=== PATIENT | female | born 1960 | race Caucasian/White ===

== ENCOUNTER → 2018-03-08 12:13 | Outpatient (CLI) | payer OTHER, SELFPAY ==
--- NOTE | 2018-03-08 | DI.MG.S_ITS ---
BILATERAL DIGITAL SCREENING MAMMOGRAM 3D/2D WITH CAD: 03/08/2018 CLINICAL: Routine screening. Family history of breast cancer. Comparison is made to exams dated: 03/07/2017 mammogram, 02/12/2016 mammogram, and 02/05/2015 mammogram - [facility]. The tissue of both breasts is extremely dense, which lowers the sensitivity of mammography. Current study was also evaluated with a Computer Aided Detection (CAD) system. There is an oval mass with an obscured margin in the right breast lower outer aspect middle depth. There also is an oval mass with an obscured margin in the right breast at 8 o'clock posterior depth. There are grouped heterogeneous calcifications in the left breast posterior depth lateral region seen on the craniocaudal view only. This areincreased in number. No other significant masses or calcifications are seen in either breast. IMPRESSION: INCOMPLETE: NEEDS ADDITIONAL IMAGING EVALUATION 1) The oval mass in the right breast lower outer aspect middle depth is indeterminate. Additional views with possible ultrasound are recommended. 2) The oval mass in the right breast at 8 o'clock posterior depth is indeterminate. Additional views with possible ultrasound are recommended. 3) The grouped heterogeneous calcifications in the left breast posterior depth lateral region seen on the craniocaudal view only are indeterminate. Additional views with possible ultrasound are recommended. This exam was interpreted at Station ID: [id number]. NOTE: For mammograms, a report in lay terms will be sent to the patient. Approximately 15% of breast malignancies will not be visualized mammographically. In the management of a palpable breast mass, a negative mammogram must not discourage biopsy of a clinically suspicious lesion. Electronically Signed By: Joshua Lyman M.D. ecl/:03/08/2018 21:32:24 copy to: UMANG DHALIWAL letter sent: Additional Imaging Needed ACR BI-RADS Category 0: Incomplete 3340F
== END ==
PROVIDERS: Family Provider Physician Assistant; PCP Physician Assistant; Visit Provider Physician Assistant
DX: Z12.31 Encounter for screening mammogram for malignant neoplasm of breast (principal); Z80.3 Family history of malignant neoplasm of breast; M85.851 Other specified disorders of bone density and structure, right thigh; Z78.0 Asymptomatic menopausal state; E07.9 Disorder of thyroid, unspecified; Z82.62 Family history of osteoporosis
CPT/HCPCS: 77063; 77067; 77080

== ENCOUNTER → 2018-03-21 16:43 | Outpatient (CLI) | payer OTHER, SELFPAY ==
[2018-03-21 17:27] LABS: Alanine Aminotransferase 40 IU/L (9-52); Albumin 4.6 g/dL (3.5-5.0); Albumin Globulin Ratio 1.5 (1.0-2.8); Alkaline Phosphatase 172 U/L (38-126); Aspartate Aminotransferase 36 IU/L (14-36); Bilirubin Total 0.5 mg/dL (0.2-1.3); Bilirubin Unconjugated 0.3 mg/dL (0.0-1.1); Globulin 3.1 g/dL (1.7-4.1); HEMOLYSIS < 15 (0-50); Total Protein 7.7 g/dL (6.3-8.2)
[2018-03-21 17:57] LABS: TSH w/ Reflex to FT4 1.45 uIU/mL (0.47-4.68)
== END ==
PROVIDERS: Family Provider Physician Assistant; PCP Physician Assistant; Visit Provider Internal Medicine Gastroenterology
DX: K74.3 Primary biliary cirrhosis (principal); R94.5 Abnormal results of liver function studies
CPT/HCPCS: 36415; 80076; 84443

== ENCOUNTER → 2018-03-22 12:52 | Outpatient (CLI) | payer OTHER, SELFPAY ==
--- NOTE | 2018-03-22 12:54 | DI.US.S_ITS ---
ULTRASOUND OF LEFT BREAST: 03/22/2018 CLINICAL: Patient returns today to evaluate a density/calcs in the left breast. Comparison is made to exams dated: 03/22/2018 mammogram, 03/22/2018 mammogram, 03/08/2018 mammogram, 03/07/2017 mammogram, and 02/12/2016 mammogram - [facility]. Real-time and Doppler ultrasound of the left breast were performed. Hogdes scale images of the real-time examination were reviewed. No significant masses or abnormalities are seen in the upper outer left breast. No masses are identified to correlate with the left breast calcifications seen on comparison diagnostic mammography from earlier on the same day. IMPRESSION: SUSPICIOUS OF MALIGNANCY - FOLLOW-UP RECOMMENDED No ultrasound correlate for the 3.8 cm extent of upper outer left breast calcifications seen on diagnostic mammography. A stereotactic biopsy of these calcifications is recommended. These results and recommendations were discussed with the patient in person at the time of the exam by Dr. Loreta Lao, attending radiologist at [facility]. This exam was interpreted at Station ID: [id number]. Electronically Signed By: Joshua Lyman M.D. ecl/:03/22/2018 17:14:22 copy to: UMANG DHALIWAL letter sent: Biopsy Required Ultrasound BI-RADS: 4b Suspicious abnormality - intermediate suspicion of malignancy
--- NOTE | 2018-03-22 12:54 | DI.US.S_ITS ---
ULTRASOUND OF RIGHT BREAST: 03/22/2018 CLINICAL: Patient returns today to evaluate a density in the right breast. Comparison is made to exams dated: 03/22/2018 mammogram, 03/08/2018 mammogram, 03/07/2017 mammogram, and 02/12/2016 mammogram - [facility]. Real-time and Doppler ultrasound of the right breast were performed. Hodges scale images of the real-time examination were reviewed. There is a benign 2.0 cm x 1.9 cm x 1 cm oval cyst in the right breast at 8 o'clock 2 cm from the nipple. This oval cyst is anechoic with posterior acoustic enhancement. This correlates with mammography findings. Color flow imaging demonstrates that there is no vascularity present. IMPRESSION: BENIGN There is no sonographic evidence of malignancy in the right breast. The 2.0 cm x 1.9 cm x 1 cm oval cyst in the right breast is consistent with a simple cyst and is benign. Return to annual screening mammogram schedule is recommended. This exam was interpreted at Station ID: [id number]. Electronically Signed By: Joshua Lyman M.D. ecl/:03/22/2018 17:17:43 copy to: UMANG DHALIWAL letter sent: Normal Exam Ultrasound BI-RADS: 2 Benign
--- NOTE | 2018-03-22 12:54 | DI.MG.S_ITS ---
UNILATERAL LEFT DIGITAL DIAGNOSTIC MAMMOGRAM 3D/2D WITH ADDITIONAL VIEWS: 03/22/2018 CLINICAL: Additional evaluation requested from prior study. Comparison is made to exams dated: 03/08/2018 mammogram, 03/07/2017 mammogram, and 02/12/2016 mammogram - [facility]. The tissue of the left breast is extremely dense, which lowers the sensitivity of mammography. There are fine pleomorphic calcifications in the upper outer left breast extending from anterior to middle depth across an anteroposterior span of at least 3.8 cm. At the posterior extent of these calcifications is a 1.0 cm focus of grouped punctate calcifications. No other significant masses, calcifications, or other findings are seen in the breast. IMPRESSION: INCOMPLETE: NEEDS ADDITIONAL IMAGING EVALUATION 3.8 cm extent of upper outer left breast calcifications, with a 1.0 cm focus of grouped punctate calcifications at the posterior extent of these calcifications. Recommend targeted ultrasound to assess for the presence of a mass lesion; if no mass is identified on ultrasound, then a stereotactic biopsy of these calcifications is recommended. This exam was interpreted at Station ID: [id number]. NOTE: For mammograms, a report in lay terms will be sent to the patient. Approximately 15% of breast malignancies will not be visualized mammographically. In the management of a palpable breast mass, a negative mammogram must not discourage biopsy of a clinically suspicious lesion. Electronically Signed By: Joshua Lyman M.D. ecl/:03/22/2018 17:10:56 copy to: UMANG DHALIWAL letter sent: Additional Imaging Needed ACR BI-RADS Category 0: Incomplete 3340F
--- NOTE | 2018-03-22 12:54 | DI.MG.S_ITS ---
UNILATERAL RIGHT DIGITAL DIAGNOSTIC MAMMOGRAM 3D/2D WITH ADDITIONAL VIEWS: 03/22/2018 CLINICAL: Additional evaluation requested from prior study. Comparison is made to exams dated: 03/08/2018 mammogram, 03/07/2017 mammogram, and 02/12/2016 mammogram - [facility]. The tissue of the right breast is extremely dense, which lowers the sensitivity of mammography. There is a 2 cm oval mass with a circumscribed margin in the right breast at 8 o'clock posterior depth. No other significant masses or calcifications are seen in the breast. IMPRESSION: INCOMPLETE: NEEDS ADDITIONAL IMAGING EVALUATION The 2 cm oval mass in the right breast is indeterminate. Additional views with possible ultrasound are recommended. This exam was interpreted at Station ID: [id number]. NOTE: For mammograms, a report in lay terms will be sent to the patient. Approximately 15% of breast malignancies will not be visualized mammographically. In the management of a palpable breast mass, a negative mammogram must not discourage biopsy of a clinically suspicious lesion. Electronically Signed By: Joshua Lyman M.D. ecl/:03/22/2018 17:07:12 copy to: UMANG DHALIWAL letter sent: Additional Imaging Needed ACR BI-RADS Category 0: Incomplete 3340F
== END ==
PROVIDERS: Family Provider Physician Assistant; PCP Physician Assistant; Visit Provider Physician Assistant
DX: R92.8 Other abnormal and inconclusive findings on diagnostic imaging of breast (principal); N60.01 Solitary cyst of right breast
CPT/HCPCS: 76642; 77065; 77066; G0279

== ENCOUNTER → 2018-04-16 15:54 | Outpatient (CLI) | payer OTHER, SELFPAY ==
[2018-04-16 16:58] LABS: Vitamin D 25 Hydroxy (D3) 16.6 ng/mL (30.0-100.0)
== END ==
PROVIDERS: Family Provider Physician Assistant; PCP Physician Assistant; Visit Provider Physician Assistant
DX: K76.9 Liver disease, unspecified (principal)
CPT/HCPCS: 36415; 82306

== ENCOUNTER → 2018-07-02 14:52 | Outpatient (CLI) | payer OTHER, SELFPAY ==
[2018-07-02 15:51] LABS: Vitamin D 25 Hydroxy (D3) 36.5 ng/mL (30.0-100.0)
== END ==
PROVIDERS: Family Provider Physician Assistant; PCP Physician Assistant; Visit Provider Physician Assistant
DX: E55.9 Vitamin D deficiency, unspecified (principal); K74.3 Primary biliary cirrhosis; M81.0 Age-related osteoporosis without current pathological fracture
CPT/HCPCS: 36415; 82306

== ENCOUNTER → 2018-10-30 13:23 | Outpatient (CLI) | payer OTHER, SELFPAY ==
[2018-10-30 15:08] LABS: Alanine Aminotransferase 42 IU/L (9-52); Albumin 4.6 g/dL (3.5-5.0); Albumin Globulin Ratio 1.4 (1.0-2.8); Alkaline Phosphatase 154 U/L (38-126); Aspartate Aminotransferase 33 IU/L (14-36); BUN Creatinine Ratio 12.5 (6-22); Bilirubin Total 0.5 mg/dL (0.2-1.3); Bilirubin Unconjugated 0.4 mg/dL (0.0-1.1); Blood Urea Nitrogen 10 mg/dL (7-17); Calcium 9.6 mg/dL (8.4-10.2); Carbon Dioxide 27 mmol/L (22-32); Chloride 98 mmol/L (98-107); Estimated Glomerular Filt Rate > 60.0 mL/min (>60); Globulin 3.4 g/dL (1.7-4.1); Glucose 63 mg/dL (70-100); HEMOLYSIS < 15 (0-50); Potassium 4.6 mmol/L (3.4-5.1); Sodium 135 mmol/L (137-145)
[2018-10-30 15:36] LABS: Thyroid Stimulating Hormone 1.38 uIU/mL (0.47-4.68)
[2018-10-30 15:38] LABS: Vitamin D 25 Hydroxy (D3) 55.3 ng/mL (30.0-100.0)
== END ==
PROVIDERS: Family Provider Physician Assistant; PCP Physician Assistant; Visit Provider Internal Medicine Gastroenterology
DX: K74.3 Primary biliary cirrhosis (principal); R94.5 Abnormal results of liver function studies; D86.9 Sarcoidosis, unspecified; E03.9 Hypothyroidism, unspecified; L81.7 Pigmented purpuric dermatosis; M81.0 Age-related osteoporosis without current pathological fracture
CPT/HCPCS: 36415; 80053; 80076; 82306; 84443

== ENCOUNTER → 2019-05-03 13:11 | Outpatient (CLI) | payer OTHER, SELFPAY ==
[2019-05-03 15:29] LABS: Alanine Aminotransferase 19 IU/L (9-52); Albumin 4.6 g/dL (3.5-5.0); Albumin Globulin Ratio 1.4 (1.0-2.8); Alkaline Phosphatase 168 U/L (38-126); Aspartate Aminotransferase 34 IU/L (14-36); Bilirubin Total 0.6 mg/dL (0.2-1.3); Bilirubin Unconjugated 0.4 mg/dL (0.0-1.1); Globulin 3.4 g/dL (1.7-4.1); HEMOLYSIS < 15 (0-50)
== END ==
PROVIDERS: Family Provider Physician Assistant; PCP Physician Assistant; Visit Provider Internal Medicine Gastroenterology
DX: K74.3 Primary biliary cirrhosis (principal)
CPT/HCPCS: 36415; 80076

== ENCOUNTER → 2019-08-17 08:05 | Outpatient (CLI) | payer OTHER, SELFPAY ==
[2019-08-17 08:44] LABS: Add Manual Diff / Slide Review NO; Basophils Absolute Auto 0 /uL (0-100); Basophils Percent Auto 0.7 % (0-2); Eosinophils Absolute Auto 100 /uL (0-450); Eosinophils Percent Auto 2.1 % (2-4); Hematocrit 38.2 % (36-46); Hemoglobin 13.4 g/dL (12.0-16.0); Lymphocytes Absolute Auto 1900 /uL (1100-4500); Lymphocytes Percent Auto 30.5 % (25-40); Mean Corpuscular Hemoglobin 32.9 PG (26-34); Mean Corpuscular Volume 93.9 fL (80-100); Monocytes Absolute Auto 700 /uL (0-900); Monocytes Percent Auto 10.8 % (3-14); Neutrophils Absolute Auto 3600 /uL (1500-7000); Neutrophils Percent Auto 55.9 % (50-75); Platelet Count 301 X10^3/uL (150-400); Red Blood Cell Count 4.07 X10^6/uL (4.0-5.2); Red Cell Distribution Width 13.3 % (11.6-14.8); White Blood Cell Count 6.4 X10^3/uL (4.5-11.0)
[2019-08-17 09:20] LABS: Alanine Aminotransferase 23 IU/L (<35); Albumin 4.2 g/dL (3.5-5.0); Albumin Globulin Ratio 1.3 (1.0-2.8); Alkaline Phosphatase 152 U/L (38-126); Aspartate Aminotransferase 30 IU/L (14-36); BUN Creatinine Ratio 17.8 (6-22); Bilirubin Total 0.5 mg/dL (0.2-1.3); Blood Urea Nitrogen 16 mg/dL (7-17); Calcium 9.2 mg/dL (8.4-10.2); Carbon Dioxide 26 mmol/L (22-32); Chloride 103 mmol/L (98-107); Cholesterol 184 mg/dL (140-199); Estimated Glomerular Filt Rate > 60.0 mL/min (>60); Globulin 3.2 g/dL (1.7-4.1); Glucose 92 mg/dL (70-100); HDL Cholesterol 58 mg/dL (40-60); HEMOLYSIS < 15 (0-50); LDL Cholesterol Calculated 115 mg/dL (<100); Potassium 3.7 mmol/L (3.4-5.1); Sodium 138 mmol/L (137-145); Total Protein 7.4 g/dL (6.3-8.2); Triglycerides 56 mg/dL (35-150)
[2019-08-17 09:35] LABS: Vitamin D 25 Hydroxy (D3) 56.8 ng/mL (30.0-100.0)
[2019-08-17 09:48] LABS: Thyroid Stimulating Hormone 1.93 uIU/mL (0.47-4.68)
== END ==
PROVIDERS: Family Provider Physician Assistant; PCP Physician Assistant; Visit Provider Physician Assistant
DX: D86.9 Sarcoidosis, unspecified (principal); E03.9 Hypothyroidism, unspecified; K74.3 Primary biliary cirrhosis; M81.0 Age-related osteoporosis without current pathological fracture; Z13.220 Encounter for screening for lipoid disorders; Z13.6 Encounter for screening for cardiovascular disorders
CPT/HCPCS: 36415; 80053; 80061; 82306; 84443; 85025

== ENCOUNTER → 2019-11-06 13:54 | Outpatient (CLI) | payer OTHER, SELFPAY ==
[2019-11-06 15:34] LABS: Alanine Aminotransferase 24 IU/L (<35); Albumin 4.4 g/dL (3.5-5.0); Albumin Globulin Ratio 1.3 (1.0-2.8); Alkaline Phosphatase 173 U/L (38-126); Aspartate Aminotransferase 30 IU/L (14-36); Bilirubin Total 0.5 mg/dL (0.2-1.3); Bilirubin Unconjugated 0.3 mg/dL (0.0-1.1); Globulin 3.3 g/dL (1.7-4.1); HEMOLYSIS < 15 (0-50); Total Protein 7.7 g/dL (6.3-8.2)
== END ==
PROVIDERS: Family Provider Physician Assistant; PCP Nurse Practitioner Family; Referring Provider Internal Medicine Gastroenterology; Visit Provider Internal Medicine Gastroenterology
DX: R94.5 Abnormal results of liver function studies (principal)
CPT/HCPCS: 36415; 80076

== ENCOUNTER → 2020-03-16 13:12 | Outpatient (CLI) | payer OTHER, SELFPAY | PROVIDERS: Family Provider Physician Assistant; PCP Nurse Practitioner Family; Referring Provider Nurse Practitioner Family; Visit Provider Nurse Practitioner Family | DX: M85.851 Other specified disorders of bone density and structure, right thigh (principal); Z78.0 Asymptomatic menopausal state; E07.9 Disorder of thyroid, unspecified; Z82.62 Family history of osteoporosis | CPT/HCPCS: 77080 ==

== ENCOUNTER → 2020-05-20 07:09 | Outpatient (CLI) | payer OTHER, SELFPAY ==
[2020-05-20 10:10] LABS: Alanine Aminotransferase 24 IU/L (<35); Albumin 4.1 g/dL (3.5-5.0); Albumin Globulin Ratio 1.4 (1.0-2.8); Alkaline Phosphatase 152 U/L (38-126); Aspartate Aminotransferase 31 IU/L (14-36); Bilirubin Total 0.6 mg/dL (0.2-1.3); Bilirubin Unconjugated 0.5 mg/dL (0.0-1.1); HEMOLYSIS < 15 (0-50); Total Protein 7.1 g/dL (6.3-8.2)
== END ==
PROVIDERS: Family Provider Physician Assistant; PCP Nurse Practitioner Family; Referring Provider Internal Medicine Gastroenterology; Visit Provider Internal Medicine Gastroenterology
DX: K74.3 Primary biliary cirrhosis (principal)
CPT/HCPCS: 36415; 80076

== ENCOUNTER → 2020-09-15 15:32 | Outpatient (CLI) | payer OTHER, SELFPAY ==
[2020-09-15] MEDS: COVID-19 VACC #1, MRNA(MOD) 100 MCG/0.5 ML VIAL IM (15:38)
== END ==
PROVIDERS: Family Provider Physician Assistant; PCP Nurse Practitioner Family; Visit Provider Internal Medicine
DX: Z23 Encounter for immunization (principal)
CPT/HCPCS: 0011A; 91301

== ENCOUNTER → 2020-10-13 15:48 | Outpatient (CLI) | payer OTHER, SELFPAY ==
[2020-10-13] MEDS: COVID-19 VACC #2, MRNA(MOD) 100 MCG/0.5 ML VIAL IM (15:50)
== END ==
PROVIDERS: Family Provider Physician Assistant; PCP Nurse Practitioner Family; Visit Provider Internal Medicine
DX: Z23 Encounter for immunization (principal)
CPT/HCPCS: 0012A; 91301

== ENCOUNTER → 2020-11-05 12:28 | Outpatient (CLI) | payer OTHER, SELFPAY ==
[2020-11-05 12:54] LABS: Hematocrit 41.3 % (36-46); Mean Corpuscular Hemoglobin 32.2 PG (26-34); Mean Corpuscular Volume 94.7 fL (80-100); Platelet Count 320 X10^3/uL (150-400); Red Blood Cell Count 4.36 X10^6/uL (4.0-5.2); Red Cell Distribution Width 13.1 % (11.6-14.8); White Blood Cell Count 6.9 X10^3/uL (4.5-11.0)
[2020-11-05 13:04] LABS: Alanine Aminotransferase 29 IU/L (<35); Albumin 4.7 g/dL (3.5-5.0); Albumin Globulin Ratio 1.3 (1.0-2.8); Alkaline Phosphatase 170 U/L (38-126); Aspartate Aminotransferase 32 IU/L (14-36); BUN Creatinine Ratio 12.5 (6-22); Bilirubin Total 0.6 mg/dL (0.2-1.3); Blood Urea Nitrogen 11 mg/dL (7-17); Calcium 9.9 mg/dL (8.4-10.2); Carbon Dioxide 28 mmol/L (22-32); Chloride 100 mmol/L (98-107); Estimated Glomerular Filt Rate > 60.0 mL/min (>60); Globulin 3.6 g/dL (1.7-4.1); Glucose 98 mg/dL (70-100); HEMOLYSIS < 15 (0-50); Potassium 4.1 mmol/L (3.4-5.1); Sodium 136 mmol/L (137-145); Total Protein 8.3 g/dL (6.3-8.2)
[2020-11-05 13:33] LABS: Free T4, Direct Thyroxine 1.38 ng/dL (0.78-2.19)
== END ==
PROVIDERS: Family Provider Physician Assistant; PCP Nurse Practitioner Family; Referring Provider Nurse Practitioner Family; Visit Provider Nurse Practitioner Family
DX: Z00.00 Encounter for general adult medical examination without abnormal findings (principal); E03.9 Hypothyroidism, unspecified
CPT/HCPCS: 36415; 80053; 84439; 84443; 85027

== ENCOUNTER → 2020-11-27 14:29 | Outpatient (CLI) | payer OTHER, SELFPAY ==
[2020-11-27 16:06] LABS: Alanine Aminotransferase 28 IU/L (<35); Albumin 4.4 g/dL (3.5-5.0); Albumin Globulin Ratio 1.3 (1.0-2.8); Alkaline Phosphatase 143 U/L (38-126); Aspartate Aminotransferase 34 IU/L (14-36); Bilirubin Total 0.5 mg/dL (0.2-1.3); Bilirubin Unconjugated 0.5 mg/dL (0.0-1.1); Globulin 3.4 g/dL (1.7-4.1); HEMOLYSIS < 15 (0-50); Total Protein 7.8 g/dL (6.3-8.2)
[2020-11-27 16:08] LABS: Alanine Aminotransferase 28 IU/L (<35); Albumin 4.4 g/dL (3.5-5.0); Albumin Globulin Ratio 1.3 (1.0-2.8); Alkaline Phosphatase 145 U/L (38-126); Aspartate Aminotransferase 35 IU/L (14-36); BUN Creatinine Ratio 17.4 (6-22); Bilirubin Total 0.6 mg/dL (0.2-1.3); Blood Urea Nitrogen 16 mg/dL (7-17); Calcium 9.5 mg/dL (8.4-10.2); Carbon Dioxide 28 mmol/L (22-32); Chloride 101 mmol/L (98-107); Estimated Glomerular Filt Rate > 60.0 mL/min (>60); Globulin 3.5 g/dL (1.7-4.1); Glucose 97 mg/dL (70-100); HEMOLYSIS < 15 (0-50); Potassium 3.9 mmol/L (3.4-5.1); Sodium 137 mmol/L (137-145); Total Protein 7.9 g/dL (6.3-8.2)
== END ==
PROVIDERS: Family Provider Physician Assistant; PCP Nurse Practitioner Family; Referring Provider Internal Medicine Gastroenterology; Visit Provider Internal Medicine Gastroenterology
DX: R94.5 Abnormal results of liver function studies (principal); E88.09 Other disorders of plasma-protein metabolism, not elsewhere classified
CPT/HCPCS: 36415; 80053; 80076

== ENCOUNTER → 2021-05-26 14:52 | Outpatient (CLI) | payer OTHER, SELFPAY ==
[2021-05-26 15:49] LABS: Hematocrit 39.8 % (36-46); Hemoglobin 13.3 g/dL (12.0-16.0); Mean Corpuscular HGB Conc 33.5 % (30-36); Mean Corpuscular Volume 95.5 fL (80-100); Platelet Count 326 X10^3/uL (150-400); Red Blood Cell Count 4.16 X10^6/uL (4.0-5.2); Red Cell Distribution Width 13.4 % (11.6-14.8); White Blood Cell Count 6.9 X10^3/uL (4.5-11.0)
[2021-05-26 16:09] LABS: Alanine Aminotransferase 27 IU/L (<35); Albumin 4.4 g/dL (3.5-5.0); Albumin Globulin Ratio 1.3 (1.0-2.8); Alkaline Phosphatase 172 U/L (38-126); Aspartate Aminotransferase 31 IU/L (14-36); BUN Creatinine Ratio 13.2 (6-22); Bilirubin Total 0.5 mg/dL (0.2-1.3); Blood Urea Nitrogen 12 mg/dL (7-17); Calcium 9.5 mg/dL (8.4-10.2); Carbon Dioxide 31 mmol/L (22-32); Chloride 101 mmol/L (98-107); Estimated Glomerular Filt Rate > 60.0 mL/min (>60); Globulin 3.3 g/dL (1.7-4.1); Glucose 91 mg/dL (80-110); HEMOLYSIS < 15 (0-50); Potassium 4.1 mmol/L (3.4-5.1); Sodium 138 mmol/L (137-145); Total Protein 7.7 g/dL (6.3-8.2)
[2021-05-26 16:26] LABS: Free T4, Direct Thyroxine 1.27 ng/dL (0.78-2.19)
[2021-05-26 16:40] LABS: Thyroid Stimulating Hormone 1.61 uIU/mL (0.47-4.68)
== END ==
PROVIDERS: Family Provider Physician Assistant; PCP Nurse Practitioner Family; Referring Provider Internal Medicine Gastroenterology; Visit Provider Internal Medicine Gastroenterology
DX: Z00.00 Encounter for general adult medical examination without abnormal findings (principal); K74.3 Primary biliary cirrhosis; E03.9 Hypothyroidism, unspecified
CPT/HCPCS: 36415; 80053; 84439; 84443; 85027

== ENCOUNTER → 2021-06-01 07:42 | Outpatient (CLI) | payer OTHER, SELFPAY ==
[2021-06-01 09:13] LABS: Alanine Aminotransferase 28 IU/L (<35); Albumin 4.2 g/dL (3.5-5.0); Albumin Globulin Ratio 1.4 (1.0-2.8); Alkaline Phosphatase 195 U/L (38-126); Aspartate Aminotransferase 32 IU/L (14-36); Bilirubin Total 0.4 mg/dL (0.2-1.3); Bilirubin Unconjugated 0.3 mg/dL (0.0-1.1); HEMOLYSIS < 15 (0-50); Total Protein 7.2 g/dL (6.3-8.2)
== END ==
PROVIDERS: Family Provider Physician Assistant; PCP Nurse Practitioner Family; Referring Provider Internal Medicine Gastroenterology; Visit Provider Internal Medicine Gastroenterology
DX: R94.5 Abnormal results of liver function studies (principal)
CPT/HCPCS: 36415; 80076

== ENCOUNTER → 2022-02-15 07:31 | Outpatient (CLI) | payer OTHER, SELFPAY ==
[2022-02-15 10:17] LABS: Alanine Aminotransferase 36 IU/L (<35); Albumin 4.2 g/dL (3.5-5.0); Albumin Globulin Ratio 1.3 (1.0-2.8); Alkaline Phosphatase 207 U/L (38-126); Aspartate Aminotransferase 36 IU/L (14-36); Bilirubin Total 0.4 mg/dL (0.2-1.3); Bilirubin Unconjugated 0.3 mg/dL (0.0-1.1); Globulin 3.2 g/dL (1.7-4.1); HEMOLYSIS < 15 (0-50); Total Protein 7.4 g/dL (6.3-8.2)
== END ==
PROVIDERS: Family Provider Physician Assistant; PCP Student in an Organized Health Care Education/Training Program; Referring Provider Internal Medicine Gastroenterology; Visit Provider Internal Medicine Gastroenterology
DX: K74.3 Primary biliary cirrhosis (principal); R94.5 Abnormal results of liver function studies
CPT/HCPCS: 36415; 80076

== ENCOUNTER → 2022-04-14 13:30 | Outpatient (CLI) | payer OTHER, SELFPAY ==
[2022-04-14 14:12] LABS: Erythrocyte Sedimentation Rate 37 MM/HR (0-20)
[2022-04-14 14:38] LABS: C-Reactive Protein Quant < 0.5 mg/dL (<1.0)
[2022-04-19 14:29] LABS: ANA Screen, IFA Negative (.)
== END ==
PROVIDERS: Family Provider Physician Assistant; PCP Student in an Organized Health Care Education/Training Program; Referring Provider Dermatology; Visit Provider Dermatology
DX: Z79.899 Other long term (current) drug therapy (principal)
CPT/HCPCS: 36415; 85651; 86038; 86140

== ENCOUNTER → 2022-05-12 09:07 | Outpatient (CLI) | payer OTHER, SELFPAY ==
[2022-05-12 10:58] LABS: Rheumatoid Factor < 8.6 IU/mL (<12.0)
[2022-05-12 11:17] LABS: Thyroid Stimulating Hormone 1.26 uIU/mL (0.47-4.68)
[2022-05-13 17:36] LABS: SS A Ro Sjogrens Antibody < 0.2 AI (0.0-0.9); SS B La Sjogrens Antibody < 0.2 AI (0.0-0.9)
[2022-05-14 07:26] LABS: Angiotensin Converting Enzyme 73 U/L (14-82)
[2022-05-19 21:13] LABS: HLA B27 Negative (.)
== END ==
PROVIDERS: Family Provider Physician Assistant; PCP Student in an Organized Health Care Education/Training Program; Referring Provider Ophthalmology; Visit Provider Ophthalmology
DX: H16.223 Keratoconjunctivitis sicca, not specified as Sjogren's, bilateral (principal); M13.872 Other specified arthritis, left ankle and foot; D86.0 Sarcoidosis of lung; D81.89 Other combined immunodeficiencies
CPT/HCPCS: 36415; 81374; 82164; 84443; 86235; 86430

== ENCOUNTER 2024-02-01 07:30 | Outpatient (RCR) | payer OTHER, SELFPAY ==
--- NOTE | 2024-01-05 18:38 | PT.OIE ---
Current Diagnoses Other muscle spasm (01/05/24) Past Medical History (Last Updated 09/09/21 @ 17:20 by EDISON Jason) Allergic rhinitis Biliary cirrhosis Colon polyps (~04/2013) Eczema Hypothyroidism Rash Recurrent sinusitis Sarcoidosis (02/2015) Schamberg's disease Past Surgical History (Last Reviewed 07/19/21 @ 12:00 by EDISON Johnson) Hx of cholecystectomy Hx of colonoscopy with polypectomy (~04/2013) Hx of sinus surgery Visit Care Team Role Provider Type Shahnaz Griffiths DO Primary Care Provider Non-Staff Specialty: Internal Medicine Address: [address] [place] [address], [address] Email: Sylvia Morrissey PA-C Family Provider Advanced Outbound Telemarketer Specialty: Medical Address: [address] [place] [address], [facility] [address], [place], [address] Email: [email or web address] Benjy Ivey MD Attending Provider Physician Referring Provider Specialty: Medical Address: [address] [place] [address], [address] Phone: Fax: Email: Physical Therapy Initial Evaluation PT-OP-A Visit Information Start: 01/04/24 17:30 Freq: Status: Active Protocol: Document 01/05/24 08:20 LRN (Rec: 01/05/24 09:08 LRN [id number]) Out-Patient Physical Therapy Visit Information Visit Information Visit Type Initial Evaluation Visit Start Time 08:20 Visit Stop Time 09:07 Visit Number 1 Evaluation Information Evaluation Date 01/05/24 Precautions Precautions Allergies to some tapes, 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 PT-OP-B Current Condition Start: 01/04/24 17:30 Freq: Status: Active Protocol: Document 01/05/24 08:20 LRN (Rec: 01/05/24 09:08 LRN [id number]) Current Condition History of Current Condition Onset Date 1 yr ago Current Complaints Anal pain, urinary leakage with forceful cough and ex. History of Current Condition Pt states the area around her anus is painful since hemorroid banding for non- surgical removal of her hemorrhoids. States she only notices anal pain when bending forward at hips to peanut picker a heavy load (grocery bags or gardening dirt) or with carrying heavy loads ( groceries) causes pulling and pain in anus. Once anus area is aggrevated she can have pain with bowel movements, transfers, sitting, etc that dissapates during the day. Anti-biotics in August caused a flare up in the pain. She also noticed after completing the intake PT forms that she has urinary leakage if she coughs loud or with jumping cardio exercise. States she is an avid yard putter. Prior Treatments and Tests none Developmental History Developmental History PMH per intake form: Allergies to some tapes, Primary biliary cirrosis, neuropathy of lower leg/feet, hx of Guillian Irvine - 2020, hypothyroidism, gall bladder removal. Treatment Goals Patient/Caregiver Goals Pt goals with therapy: -ex's to learn how to stretch it out-preventative activities to make it not flare up so often. -lifting wihout anal pain or carrying heavy groceries (a lot of cans) w/hands below the wAIST w/o anal pain. -eliminate urinary leakage with severe coughing. Personal Factors Other Personal Factors That May Effect Anus is painful since Therapy/Recovery hemorroid banding, Exercises 3x/wk. PT-OP-C Subjective Start: 01/04/24 17:30 Freq: Status: Active Protocol: Document 01/05/24 08:20 LRN (Rec: 01/05/24 09:08 LRN [id number]) Patient Questionnaires Pelvic Floor Distress Inventory Questionnaire (PFDI- SF20) Pelvic Floor Score 7 PT-OP-I Pelvic Floor Start: 01/04/24 17:30 Freq: Status: Active Protocol: Document 01/05/24 08:20 LRN (Rec: 01/05/24 18:36 LRN [id number]) Pelvic Floor Assessment Urine Pelvic Floor Surgery No Urinary Symptoms Urge Sensation Leakage Size Large Leakage Cause Cough Other Leakage Causes Strong cough Leaks Per Day With strong cough Voiding Frequency ~8x/day Nocturia 1 Urine Pad Type Panty Liner Pelvic Clock Pelvic Clock 12-3 Tenderness,Tightness Pelvic Clock 3-6 Tenderness,Tightness Pelvic Clock 6-9 Tenderness,Tightness Pelvic Clock 9-12 Tenderness,Tightness Pelvic Clock Other Externally around anus - tenderness. Inter-Rectal Assessment Up to first knuckle: No tenderness. Past first knuckle: Tender. Prolapse Cystocele Grade 3 Prolapse Comments In supine: Bladder has dropped in 1/2 length of vaginal canal, but not outside of canal. Perineal Descent Resting Present Bearing Present Contraction Ability Voluntary Contraction Weak Voluntary Relaxation Weak Manual Muscle Testing Left 2 Manual Muscle Testing Right 2 Manual Muscle Testing Anterior 1 Manual Muscle Testing Posterior 1 Muscle Endurance (Seconds) 3 Number of Quick Contractions In 10 7 Seconds PT-OP-J Posture/Palpation/Skin Start: 01/04/24 17:30 Freq: Status: Active Protocol: Document 01/05/24 08:20 LRN (Rec: 01/05/24 09:08 LRN [id number]) Posture Evaluation Position Standing Shoulder Posture (L) Elevated Scapula Posture (L) Elevated Arm Posture (L) Neutral Pelvis Posture Neutral PT-OP-K Range of Motion Start: 01/04/24 17:30 Freq: Status: Active Protocol: Document 01/05/24 08:20 LRN (Rec: 01/05/24 09:08 LRN [id number]) Lumbar Spine Range of Motion Lumbar Spine Active Degrees Testing Position Standing Flexion 115 Extension 20 Rotation Left 45 Rotation Right 45 Lateral Flexion Left 15 Lateral Flexion Right 15 ROM Limitations Soft Tissue Tightness Hip Goniometric Range of Motion Hip Right Passive Testing Position Supine Abduction 30 Internal Rotation 35 External Rotation 50 Left Passive Testing Position Supine Abduction 30 Internal Rotation 50 External Rotation 50 PT-OP-M Strength Start: 01/04/24 17:30 Freq: Status: Active Protocol: Document 01/05/24 08:20 LRN (Rec: 01/05/24 09:08 LRN [id number]) Trunk Strength Trunk Manual Muscle Testing Core Stabilization Pt not able to mostly maintain stability during LE MMT. Hip Strength Hip Manual Muscle Testing Right Comments Strength is 5/5 except as indicated above. Left Adduction 3+ Fair+ Comments Hip AD caused R lateral trunk pain. Strength is 5/5 except as indicated above. PT-OP-Q Treatments Start: 01/04/24 17:30 Freq: Status: Active Protocol: Document 01/05/24 08:20 LRN (Rec: 01/05/24 09:08 LRN [id number]) Self-Care/Home Management Treatment Education Other Education Discussed results of evaluation, goals, and plan of care (POC) with pt, discussed attendance/cx/dns policy; pt agreeable to goals, attendance /cx/dns policy and POC. Discussed and educated pt in specifics for completion of in use of Bladder Diary and I/S in tracking for 1 week. Activities Self-Care/Home Management Activities Issued & reviewed HEP: Kegel ex's and discussed exercise of Quick Flicks, Long Holds and Aggravators. PT-OP-T Assessment and Plan Start: 01/04/24 17:30 Freq: Status: Active Protocol: Document 01/05/24 08:20 LRN (Rec: 01/05/24 09:08 LRN [id number]) Physical Therapy Assessment Rehab Potential Rehabilitation Potential Excellent Evaluation Complexity Number of Personal Factors/Comorbidities 1-2 Number of Body Systems Impaired 4 or More Clinical Presentation at Evaluation Evolving Impairments Impairments Activity Tolerance,Functional Activities,ROM,Soft Tissue Mobility,Strength,Transfers Goals Three Impairment Stress Urinary Leakage with severe cough Impairment Weak PF due to tightness of Levator ani and general PF muscles. Short Term Goal (STG) Pt will be educated in modification of coughing to minimize increasing inner core pressure and in coordination of PF relaxation after PF strengthening Kegels. STG Duration 4 wks-02/02/24 Halfway Goal (LTG) Improve PF strength with pt able to perform a severe cough without urinary leakage for improved pelvic health. LTG Duration 10 wks-03/15/24 Two Impairment Anal pain with lifting or carrying heavy objects/ groceries. Impairment PF & Levator Ani tightness and pain Short Term Goal (STG) Pt will be educated in lifting /carrying heavy objects and best object positioning to minimize anal pain. STG Duration 4 wks-02/02/24 First Line Supervisor Goal (LTG) Improve soft tissue mobility of PF/hips/LB, with pt able to lift or carry heavy groceries (a lot of cans) w/hands below the waist w/o onset of anal pain. LTG Duration 10 wks-03/15/24 One Impairment Pt lacks an independent self care HEP. Short Term Goal (STG) Pt will be educated in coordinated breathing/exercise to preventative flare ups with pt able to go 2-4 wks without anal pain flare ups. STG Duration 4 wks-02/02/24 Halfway Goal (LTG) Pt will be independent in a self care HEP for PF stretching and strengthening ex's and hip/LB stretching/ strengthening to return and maintain baseline condition. LTG Duration 10 wks-03/15/24 Assessment Summary Assessment Pt is a 63 yo female who presents with anal pain with bending over at hips to peanut picker heavy objects, or with carrying heavy objects with hands hanging down, and stress urinary incontinence with a strong cough. She appears very tight and tender internally via anal assessment , and vaginally in the PF muscles around the PF clock and tenderness externally in Levator ani ms bilaterally, resulting in weakness of contraction. R hip IR is limited, although it could be due to pt being guarded with PROM. Hip AD's are tight but trunk mobility is very good. The pt will benefit from skilled physical therapy for manual stretching of her PF and Levator ani muscles as well as the anal muscles, although it is expected that external anal stretching manually and with exercise will be all that is needed for pain relief. The pt will benefit from skilled physical therapy to work towards achieving the above stated goals. Physical Therapy Plan Frequency and Duration Frequency of Treatment 1x/Week Duration of treatment (weeks) 10 Plan of Care Start Date 01/05/24 Plan of Care End Date 03/15/24 Therapeutic Interventions Therapeutic Interventions Coordination Training,Home Exercise Program,Joint Mobilizations,Manual Therapy, Neuromuscular Re-education, Self-Care/Home Management,Soft Tissue Mobilization, Therapeutic Activities, Therapeutic Exercises Modalities Biofeedback,Cold Pack/Ice Massage Next Visit Focus/Plan Next Note Type Treatment Note Next Visit Plan Next: Review bladder diary and make recommendations as appropriate for painfree BM w/ o pushing, Assess PF/Bowel, assess tolerance for self & manual PF & Levator Ani stretching, issuing wand for home stretching if tolerated. If pt PF mobility good enough to tolerate Vemg electrode, perform Biofeedback assessment and training for ms relaxation, otherwise stretch first externally and internally. Issue HEP: Anal/ Posterior PF stretching. Pt Educ: Deep Breathing & Breathing with transfers & ADLs. EX: PF/core/hip strengthening, improve hip IR and trunk extension mobility. Manual: MFR/stretch to Levator Ani around anus and PF . POC: Pt education, Manual therapy. Biofeedback with anal sensor if needed or vaginal sensor. Therapeutic Exercises, Therapeutic Activities, Neuromuscular Reeducation.
--- NOTE | 2024-01-05 18:39 | PT.OPPOC ---
Physical, Occupational & Speech Therapy At [facility] Current Diagnoses Other muscle spasm (01/05/24) Visit Care Team Role Provider Type Shahnaz Griffiths DO Primary Care Provider Non-Staff Specialty: Internal Medicine Address: [address] [place], [address] Email: Sylvia Morrissey PA-C Family Provider Advanced Rewinder Operator Helper Specialty: Medical Address: [address] [place] [address], [address], [place], [address] Email: [email or web address] Benjy Ivey MD Attending Provider Physician Referring Provider Specialty: Medical Address: [address] [place] [address], [address] Phone: Fax: Email: Plan Of Care PT-OP-T Assessment and Plan Start: 01/04/24 17:30 Freq: Status: Active Protocol: Document 01/05/24 08:20 LRN (Rec: 01/05/24 09:08 LRN [id number]) Physical Therapy Assessment Rehab Potential Rehabilitation Potential Excellent Evaluation Complexity Number of Personal Factors/Comorbidities 1-2 Number of Body Systems Impaired 4 or More Clinical Presentation at Evaluation Evolving Impairments Impairments Activity Tolerance,Functional Activities,ROM,Soft Tissue Mobility,Strength,Transfers Goals Three Impairment Stress Urinary Leakage with severe cough Impairment Weak PF due to tightness of Levator ani and general PF muscles. Short Term Goal (STG) Pt will be educated in modification of coughing to minimize increasing inner core pressure and in coordination of PF relaxation after PF strengthening Faye. STG Duration 4 wks-02/02/24 Hose Cementer Goal (LTG) Improve PF strength with pt able to perform a severe cough without urinary leakage for improved pelvic health. LTG Duration 10 wks-03/15/24 Two Impairment Anal pain with lifting or carrying heavy objects/ groceries. Impairment PF & Levator Ani tightness and pain Short Term Goal (STG) Pt will be educated in lifting /carrying heavy objects and best object positioning to minimize anal pain. STG Duration 4 wks-02/02/24 Senior Care Goal (LTG) Improve soft tissue mobility of PF/hips/LB, with pt able to lift or carry heavy groceries (a lot of cans) w/hands below the waist w/o onset of anal pain. LTG Duration 10 wks-03/15/24 One Impairment Pt lacks an independent self care HEP. Short Term Goal (STG) Pt will be educated in coordinated breathing/exercise to preventative flare ups with pt able to go 2-4 wks without anal pain flare ups. STG Duration 4 wks-02/02/24 Senior Care Goal (LTG) Pt will be independent in a self care HEP for PF stretching and strengthening ex's and hip/LB stretching/ strengthening to return and maintain baseline condition. LTG Duration 10 wks-03/15/24 Assessment Summary Assessment Pt is a 63 yo female who presents with anal pain with bending over at hips to picking table worker heavy objects, or with carrying heavy objects with hands hanging down, and stress urinary incontinence with a strong cough. She appears very tight and tender internally via anal assessment , and vaginally in the PF muscles around the PF clock and tenderness externally in Levator ani ms bilaterally, resulting in weakness of contraction. R hip IR is limited, although it could be due to pt being guarded with PROM. Hip AD's are tight but trunk mobility is very good. The pt will benefit from skilled physical therapy for manual stretching of her PF and Levator ani muscles as well as the anal muscles, although it is expected that external anal stretching manually and with exercise will be all that is needed for pain relief. The pt will benefit from skilled physical therapy to work towards achieving the above stated goals. Physical Therapy Plan Frequency and Duration Frequency of Treatment 1x/Week Duration of treatment (weeks) 10 Plan of Care Start Date 01/05/24 Plan of Care End Date 03/15/24 Therapeutic Interventions Therapeutic Interventions Coordination Training,Home Exercise Program,Joint Mobilizations,Manual Therapy, Neuromuscular Re-education, Self-Care/Home Management,Soft Tissue Mobilization, Therapeutic Activities, Therapeutic Exercises Modalities Biofeedback,Cold Pack/Ice Massage Next Visit Focus/Plan Next Note Type Treatment Note Next Visit Plan Next: Review bladder diary and make recommendations as appropriate for painfree BM w/ o pushing, Assess PF/Bowel, assess tolerance for self & manual PF & Levator Ani stretching, issuing wand for home stretching if tolerated. If pt PF mobility good enough to tolerate Vemg electrode, perform Biofeedback assessment and training for ms relaxation, otherwise stretch first externally and internally. Issue HEP: Anal/ Posterior PF stretching. Pt Educ: Deep Breathing & Breathing with transfers & ADLs. EX: PF/core/hip strengthening, improve hip IR and trunk extension mobility. Manual: MFR/stretch to Levator Ani around anus and PF . POC: Pt education, Manual therapy. Biofeedback with anal sensor if needed or vaginal sensor. Therapeutic Exercises, Therapeutic Activities, Neuromuscular Reeducation. Plan of Care Dates Plan of Care Start Date 01/05/24 Plan of Care End Date 03/15/24 Electronically Signed by: Kathryn Ellis, PT 01/05/24 4133 If you are in agreement with this Plan of Care, please return a signed and dated copy. I have reviewed this Plan of Care and certify that the skilled therapy services above are required to meet the patient?s needs. Physician Signature Date Printed Name and Credentials Clinical Instructor Signature Printed Name and Credentials
--- NOTE | 2024-02-01 08:58 | PT.OTN ---
Current Diagnoses Other muscle spasm (02/01/24) Physical Therapy Treatment Note PT-OP-A Visit Information Start: 01/04/24 17:30 Freq: Status: Active Protocol: Document 02/01/24 07:32 LRN (Rec: 02/01/24 08:57 LRN [id number]) Out-Patient Physical Therapy Visit Information Visit Information Visit Type Treatment Note Visit Start Time 07:32 Visit Stop Time 08:11 Visit Number 2 Evaluation Information Evaluation Date 01/05/24 Precautions Precautions Allergies to some tapes, Guillian [place] - 2020 w/ residual neuropathy of lower leg/feet, hypothyroidism. PT-OP-B Current Condition Start: 01/04/24 17:30 Freq: Status: Active Protocol: Document 01/05/24 08:20 LRN (Rec: 01/05/24 09:08 LRN [id number]) Current Condition History of Current Condition Onset Date 1 yr ago Current Complaints Anal pain, urinary leakage with forceful cough and ex. History of Current Condition Pt states the area around her anus is painful since hemorroid banding for non- surgical removal of her hemorrhoids. 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 Once anus area is aggrevated she can have pain with bowel movements, transfers, sitting, etc that dissapates during the day. Anti-biotics in August caused a flare up in the pain. She also noticed after completing the intake PT forms that she has urinary leakage if she coughs loud or with jumping cardio exercise. States she is an avid yard putter. Prior Treatments and Tests none Developmental History Developmental History PMH per intake form: Allergies to some tapes, Primary biliary cirrosis, neuropathy of lower leg/feet, hx of Guillian [place] - 2020, hypothyroidism, gall bladder removal. Treatment Goals Patient/Caregiver Goals Pt goals with therapy: -ex's to learn how to stretch it out-preventative activities to make it not flare up so often. -lifting wihout anal pain or carrying heavy groceries (a lot of cans) w/hands below the wAIST w/o anal pain. -eliminate urinary leakage with severe coughing. Personal Factors Other Personal Factors That May Effect Anus is painful since Therapy/Recovery hemorroid banding, Exercises 3x/wk. PT-OP-C Subjective Start: 01/04/24 17:30 Freq: Status: Active Protocol: Document 02/01/24 07:32 LRN (Rec: 02/01/24 08:57 LRN [id number]) OP-PT Subjective Patient Comments Patient Comments Pt requests exercises to do and doesn't want to come back. States doing Kegels has resulted in her not having back pain anymore. PT-OP-I Pelvic Floor Start: 01/04/24 17:30 Freq: Status: Active Protocol: Document 01/05/24 08:20 LRN (Rec: 01/05/24 18:36 LRN [id number]) Pelvic Floor Assessment Urine Pelvic Floor Surgery No Urinary Symptoms Urge Sensation Leakage Size Large Leakage Cause Cough Other Leakage Causes Strong cough Leaks Per Day With strong cough Voiding Frequency ~8x/day Nocturia 1 Urine Pad Type Panty Liner Pelvic Clock Pelvic Clock 12-3 Tenderness,Tightness Pelvic Clock 3-6 Tenderness,Tightness Pelvic Clock 6-9 Tenderness,Tightness Pelvic Clock 9-12 Tenderness,Tightness Pelvic Clock Other Externally around anus - tenderness. Inter-Rectal Assessment Up to first knuckle: No tenderness. Past first knuckle: Tender. Prolapse Cystocele Grade 3 Prolapse Comments In supine: Bladder has dropped in 1/2 length of vaginal canal, but not outside of canal. Perineal Descent Resting Present Bearing Present Contraction Ability Voluntary Contraction Weak Voluntary Relaxation Weak Manual Muscle Testing Left 2 Manual Muscle Testing Right 2 Manual Muscle Testing Anterior 1 Manual Muscle Testing Posterior 1 Muscle Endurance (Seconds) 3 Number of Quick Contractions In 10 7 Seconds PT-OP-J Posture/Palpation/Skin Start: 01/04/24 17:30 Freq: Status: Active Protocol: Document 01/05/24 08:20 LRN (Rec: 01/05/24 09:08 LRN [id number]) Posture Evaluation Position Standing Shoulder Posture (L) Elevated Scapula Posture (L) Elevated Arm Posture (L) Neutral Pelvis Posture Neutral PT-OP-K Range of Motion Start: 01/04/24 17:30 Freq: Status: Active Protocol: Document 01/05/24 08:20 LRN (Rec: 01/05/24 09:08 LRN [id number]) Lumbar Spine Range of Motion Lumbar Spine Active Degrees Testing Position Standing Flexion 115 Extension 20 Rotation Left 45 Rotation Right 45 Lateral Flexion Left 15 Lateral Flexion Right 15 ROM Limitations Soft Tissue Tightness Hip Goniometric Range of Motion Hip Right Passive Testing Position Supine Abduction 30 Internal Rotation 35 External Rotation 50 Left Passive Testing Position Supine Abduction 30 Internal Rotation 50 External Rotation 50 PT-OP-M Strength Start: 01/04/24 17:30 Freq: Status: Active Protocol: Document 01/05/24 08:20 LRN (Rec: 01/05/24 09:08 LRN [id number]) Trunk Strength Trunk Manual Muscle Testing Core Stabilization Pt not able to mostly maintain stability during LE MMT. Hip Strength Hip Manual Muscle Testing Right Comments Strength is 5/5 except as indicated above. Left Adduction 3+ Fair+ Comments Hip AD caused R lateral trunk pain. Strength is 5/5 except as indicated above. PT-OP-Q Treatments Start: 01/04/24 17:30 Freq: Status: Active Protocol: Document 02/01/24 07:32 LRN (Rec: 02/01/24 08:57 LRN [id number]) Therapeutic Exercises Supine Exercises Happy Baby pose Supine Exercise Name Stretch for PF and hip AD's Reps/Minutes 3' Kegel Supine Exercise Name Kegel for PF contraction/ relaxation awareness & learning of quick/long hold Reps/Minutes 4' Neuro Re-Education Treatment Coordination Activities Deep Breathing with abdominal mvmt Details Deep breathing w/abdominal mvmt and awareness of PF contract/relax. Reps/Duration 25' Comments Much training, including phys/ verbal/handout review needed. Self-Care/Home Management Treatment Education Other Education Pt lead discussion (after review of program) of POC changing to one visit, then at end for possible further visits. Pt education use of deep breathing with BM's and positioning (knees above hips) , and for deep breathing of 5- 6 sec breaths to have BM's vs pushing. Activities Self-Care/Home Management Activities Handout issued for proper deep breathing and I/S pt in Happy Baby Pose for stretching of Posterior PF and holding on PF strengthening if discomfort noted with BM's. PT-OP-T Assessment and Plan Start: 01/04/24 17:30 Freq: Status: Active Protocol: Document 02/01/24 07:32 LRN (Rec: 02/01/24 08:57 LRN [id number]) Physical Therapy Assessment Goals Three Impairment Stress Urinary Leakage with severe cough Impairment Weak PF due to tightness of Levator ani and general PF muscles. Short Term Goal (STG) Pt will be educated in modification of coughing to minimize increasing inner core pressure and in coordination of PF relaxation after PF strengthening Kegels. 02/01/24: Pt educated in coordination of PF relaxation/ lift with deep breathing training and I/S in having BM using deep breathing/LE positioning/without pushing. Educated pt in PF awareness and what to do if PF becomes tight and uncomfortable with BMs (hold on Kegels, Happy Baby pose). STG Duration 4 wks-02/02/24 progressed (ed cough, awareness PF relax p/kegel) Jail Goal (LTG) Improve PF strength with pt able to perform a severe cough without urinary leakage for improved pelvic health. LTG Duration 10 wks-03/15/24 Two Impairment Anal pain with lifting or carrying heavy objects/ groceries. Impairment PF & Levator Ani tightness and pain Short Term Goal (STG) Pt will be educated in lifting /carrying heavy objects and best object positioning to minimize anal pain. STG Duration 4 wks-02/02/24 Senior Ui Designer Goal (LTG) Improve soft tissue mobility of PF/hips/LB, with pt able to lift or carry heavy groceries (a lot of cans) w/hands below the waist w/o onset of anal pain. LTG Duration 10 wks-03/15/24 One Impairment Pt lacks an independent self care HEP. Short Term Goal (STG) Pt will be educated in coordinated breathing/exercise to preventative flare ups with pt able to go 2-4 wks without anal pain flare ups. 02/01/24: Pt educated in coordination of PF relaxation/ lift with deep breathing training. STG Duration 4 wks-02/02/24 progressed (need trng w/ex) Jail Goal (LTG) Pt will be independent in a self care HEP for PF stretching and strengthening ex's and hip/LB stretching/ strengthening to return and maintain baseline condition. 02/01/24: I/S pt in Happy Baby pose. 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 Today she chose not to do bladder diary, initially requesting only ex's and discharge, but after treatment was open to another PT visit and will decide if she wants to continue or discharge before next appointment. She is not complaining of anal pain doing Kegels at home and reportedly has only discomfort w/BM's when stools are firm. After much education and training the pt was able to perform, partially correct, a deep breath (only doing ~2 sec breath). The pt did appear to have a good understanding of Happy Baby pose, but I'm not sure if she can determine when it might be needed to perform stretch as part of her HEP. Physical Therapy Plan Frequency and Duration Frequency of Treatment 1x/Week Duration of treatment (weeks) 10 Plan of Care Start Date 01/05/24 Plan of Care End Date 03/15/24 Next Visit Focus/Plan Next Note Type Treatment Note Next Visit Plan Probably one more visit. If pt returns, review is needed ( when to stretch PF & ex, stretch PF w/breathing, happy baby and BM positioning) and addition HEP (general Anal/ Posterior PF stretching), hip AD's and R IR, BKTC, and MERLIN ( issue happy baby) stretch, Education on posture and it's effect on PF & add PF relax ( possible stretch-further discussion) w/transfers, norm hydration levels. Assess Goal 2, LTG 3 & PUF before discharge. ?Self PF stretching (lev ani PF -issuing wand for home stretching if tolerated). EX: PF/core/hip strengthening. Manual: MFR/stretch to Levator Ani around anus and PF . POC: Pt education, Manual therapy. Biofeedback with anal sensor if needed or vaginal sensor. Therapeutic Exercises, Therapeutic Activities, Neuromuscular Reeducation.
--- NOTE | 2024-10-10 16:30 | PT.OPDS ---
Current Diagnoses Other muscle spasm (02/01/24) Visit Care Team Role Provider Type Doctor MD Juan Referring Provider Non-Staff Specialty: Medical Address: Phone: Fax: Email: Shahnaz Griffiths DO Primary Care Provider Non-Staff Specialty: Internal Medicine Address: [address] [facility], [place], [address] Email: Other Providers Specialty: Address: Phone: Fax: Email: Sylvia Morrissey PA-C Family Provider Advanced Grain Drier Operator Specialty: Medical Address: [address] [place] [address], [address], [place], [address] Email: [email or web address] Phillip Ivey MD Attending Provider Non-Staff Specialty: Internal Medicine Address: [address] [place] [address], [phone] Email: Visit Number Visit Number 2 Discharge Summary PT-OP-B Current Condition Start: 01/04/24 17:30 Freq: Status: Active Protocol: Document 01/05/24 08:20 LRN (Rec: 01/05/24 09:08 LRN [id number]) Current Condition History of Current Condition Onset Date 1 yr ago Current Complaints Anal pain, urinary leakage with forceful cough and ex. History of Current Condition Pt states the area around her anus is painful since hemorroid banding for non- surgical removal of her hemorrhoids. 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 Once anus area is aggrevated she can have pain with bowel movements, transfers, sitting, etc that dissapates during the day. Anti-biotics in August caused a flare up in the pain. She also noticed after completing the intake PT forms that she has urinary leakage if she coughs loud or with jumping cardio exercise. States she is an avid yard putter. Prior Treatments and Tests none Developmental History Developmental History PMH per intake form: Allergies to some tapes, Primary biliary cirrosis, neuropathy of lower leg/feet, hx of Guillian [place] - 2020, hypothyroidism, gall bladder removal. Treatment Goals Patient/Caregiver Goals Pt goals with therapy: -ex's to learn how to stretch it out-preventative activities to make it not flare up so often. -lifting wihout anal pain or carrying heavy groceries (a lot of cans) w/hands below the wAIST w/o anal pain. -eliminate urinary leakage with severe coughing. Personal Factors Other Personal Factors That May Effect Anus is painful since Therapy/Recovery hemorroid banding, Exercises 3x/wk. PT-OP-C Subjective Start: 01/04/24 17:30 Freq: Status: Active Protocol: Document 02/01/24 07:32 LRN (Rec: 02/01/24 08:57 LRN [id number]) OP-PT Subjective Patient Comments Patient Comments Pt requests exercises to do and doesn't want to come back. States doing Kegels has resulted in her not having back pain anymore. PT-OP-I Pelvic Floor Start: 01/04/24 17:30 Freq: Status: Active Protocol: Document 01/05/24 08:20 LRN (Rec: 01/05/24 18:36 LRN [id number]) Pelvic Floor Assessment Urine Pelvic Floor Surgery No Urinary Symptoms Urge Sensation Leakage Size Large Leakage Cause Cough Other Leakage Causes Strong cough Leaks Per Day With strong cough Voiding Frequency ~8x/day Nocturia 1 Urine Pad Type Panty Liner Pelvic Clock Pelvic Clock 12-3 Tenderness,Tightness Pelvic Clock 3-6 Tenderness,Tightness Pelvic Clock 6-9 Tenderness,Tightness Pelvic Clock 9-12 Tenderness,Tightness Pelvic Clock Other Externally around anus - tenderness. Inter-Rectal Assessment Up to first knuckle: No tenderness. Past first knuckle: Tender. Prolapse Cystocele Grade 3 Prolapse Comments In supine: Bladder has dropped in 1/2 length of vaginal canal, but not outside of canal. Perineal Descent Resting Present Bearing Present Contraction Ability Voluntary Contraction Weak Voluntary Relaxation Weak Manual Muscle Testing Left 2 Manual Muscle Testing Right 2 Manual Muscle Testing Anterior 1 Manual Muscle Testing Posterior 1 Muscle Endurance (Seconds) 3 Number of Quick Contractions In 10 7 Seconds PT-OP-J Posture/Palpation/Skin Start: 01/04/24 17:30 Freq: Status: Active Protocol: Document 01/05/24 08:20 LRN (Rec: 01/05/24 09:08 LRN [id number]) Posture Evaluation Position Standing Shoulder Posture (L) Elevated Scapula Posture (L) Elevated Arm Posture (L) Neutral Pelvis Posture Neutral PT-OP-K Range of Motion Start: 01/04/24 17:30 Freq: Status: Active Protocol: Document 01/05/24 08:20 LRN (Rec: 01/05/24 09:08 LRN [id number]) Lumbar Spine Range of Motion Lumbar Spine Active Degrees Testing Position Standing Flexion 115 Extension 20 Rotation Left 45 Rotation Right 45 Lateral Flexion Left 15 Lateral Flexion Right 15 ROM Limitations Soft Tissue Tightness Hip Goniometric Range of Motion Hip Right Passive Testing Position Supine Abduction 30 Internal Rotation 35 External Rotation 50 Left Passive Testing Position Supine Abduction 30 Internal Rotation 50 External Rotation 50 PT-OP-M Strength Start: 01/04/24 17:30 Freq: Status: Active Protocol: Document 01/05/24 08:20 LRN (Rec: 01/05/24 09:08 LRN [id number]) Trunk Strength Trunk Manual Muscle Testing Core Stabilization Pt not able to mostly maintain stability during LE MMT. Hip Strength Hip Manual Muscle Testing Right Comments Strength is 5/5 except as indicated above. Left Adduction 3+ Fair+ Comments Hip AD caused R lateral trunk pain. Strength is 5/5 except as indicated above. PT-OP-T Assessment and Plan Start: 01/04/24 17:30 Freq: Status: Active Protocol: Document 10/10/24 16:11 LRN (Rec: 10/10/24 16:19 LRN [id number]) Physical Therapy Assessment Goals Three Impairment Stress Urinary Leakage with severe cough Impairment Weak PF due to tightness of Levator ani and general PF muscles. Short Term Goal (STG) Pt will be educated in modification of coughing to minimize increasing inner core pressure and in coordination of PF relaxation after PF strengthening Kegels. 02/01/24: Pt educated in coordination of PF relaxation/ lift with deep breathing training and I/S in having BM using deep breathing/LE positioning/without pushing. Educated pt in PF awareness and what to do if PF becomes tight and uncomfortable with BMs (hold on Kegels, Happy Baby pose). STG Duration 4 wks-02/02/24 progressed (10/10/24: NOT MET GOAL ) Stack Yield Engineer Goal (LTG) Improve PF strength with pt able to perform a severe cough without urinary leakage for improved pelvic health. LTG Duration 10 wks-03/15/24 (10/10/24: Pt DC'd by phone, no final assessment) Two Impairment Anal pain with lifting or carrying heavy objects/ groceries. Impairment PF & Levator Ani tightness and pain Short Term Goal (STG) Pt will be educated in lifting /carrying heavy objects and best object positioning to minimize anal pain. STG Duration 4 wks-02/02/24 (10/10/24: Pt DC'd by phone, no final assessment) Stack Yield Engineer Goal (LTG) Improve soft tissue mobility of PF/hips/LB, with pt able to lift or carry heavy groceries (a lot of cans) w/hands below the waist w/o onset of anal pain. LTG Duration 10 wks-03/15/24 (10/10/24: Pt DC'd by phone, no final assessment) One Impairment Pt lacks an independent self care HEP. Short Term Goal (STG) Pt will be educated in coordinated breathing/exercise to preventative flare ups with pt able to go 2-4 wks without anal pain flare ups. 02/01/24: Pt educated in coordination of PF relaxation/ lift with deep breathing training. STG Duration 4 wks-02/02/24 progressed (need trng w/ex) [facility] Goal (LTG) Pt will be independent in a self care HEP for PF stretching and strengthening ex's and hip/LB stretching/ strengthening to return and maintain baseline condition. 02/01/24: I/S pt in Happy Baby pose. 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 The pt was seen for her initial evaluation and 1 treatment visit. Pt called saying she no longer needed appts, was feeling better, and ready for DC from PT; therefore pt is discharged from PT at her request. The pt was not available for final assessment. Physical Therapy Plan Discharge Physical Therapy Discharge Reasons Patient Request Discharge Comments Thank you for your referral.
== END 2024-10-17 08:42 | disposition home or self-care (01) ==
LOC: PHYS 07:30
PROVIDERS: Family Provider Physician Assistant; PCP Student in an Organized Health Care Education/Training Program; Visit Provider Internal Medicine Gastroenterology
DX: M62.838 Other muscle spasm (principal)
CPT/HCPCS: 97110; 97112; 97162; 97535